=== PATIENT | male | born 1990 | race Caucasian/White ===

== ENCOUNTER 2017-05-13 07:47 | Emergency (ER) | payer SELFPAY ==
[~2017-05-13] VITALS: Ht 175.3 cm; Wt 83.8 kg
[2017-05-13 07:59] VITALS: BP 147/79
[2017-05-13] MEDS ORDERED: LIDODERM 5% P1 PATCH TD (09:13)
[2017-05-13] MEDS ORDERED: PERCOCET 5/31 TABLET PO (09:13)
[2017-05-13] MEDS ORDERED: FLEXERIL10 MG PO (09:13)
== END 2017-05-13 09:28 | disposition home or self-care (01) ==
LOC: EME 07:47
DX: S39.012A Strain of muscle, fascia and tendon of lower back, initial encounter (principal); S76.012A Strain of muscle, fascia and tendon of left hip, initial encounter; M54.42 Lumbago with sciatica, left side; X50.9XXA Other and unspecified overexertion or strenuous movements or postures, initial encounter; Y93.44 Activity, trampolining; Z88.0 Allergy status to penicillin; Z88.6 Allergy status to analgesic agent
CPT/HCPCS: 72100; 73502; 99281; 99284